=== PATIENT | female | born 2000 | race Caucasian/White ===

== ENCOUNTER 2022-03-03 17:41 | Inpatient (IN) | payer OTHER ==
[~2022-03-03] VITALS: Ht 160 cm; Wt 100.0 kg
[2022-03-07] VITALS (12 sets, daily range): BP systolic 133–159; BP diastolic 70–99; PULSE 95–121; TEMP 98.4
--- NOTE | 2022-03-07 19:15 | NUR ---
PT TO UNIT AMBULATORY WITH SPOUSE FOR SCHEDULED CYTOTEC INDUCTION. PT ORIENTED TO ROOM, CHANGED INTO GOWN. DENIES CTX, LOF, VAGINAL BLEEDING. EFM X2 APPLIED, VS OBTAINED. PLAN OF CARE EXPLAINED, QUESTIONS ENCOURAGED AND ANSWERED, UNDERSTANDING VERBALIZED.
[2022-03-07 20:58] LABS: COLLECTION METHOD CLEAN CATCH
[2022-03-07 21:00] LABS: BASO % 0.3 % (0.0-2.0); EOS # 0.1 K/mm3 (0.0-0.7); EOS % 1.4 % (0.0-4.0); GRAN # 7.1 K/mm3 (1.4-6.5); GRAN % 76.2 % (42.2-75.2); LYMPH # 1.3 K/mm3 (1.2-3.4); LYMPH % 14.2 % (20.0-51.0); MEAN CELL VOLUME 91 fl (80.0-100.0); MEAN CORPUSCULAR HEMOGLOBIN 30 pg (27-31); MEAN CORPUSCULAR HGB CONC 33 g/dl (33.0-37.0); MEAN PLATELET VOLUME 9.6 fl (7.4-10.4); MONO # 0.7 K/mm3 (0.1-0.6); MONO % 7.4 % (1.7-9.3); PLATELET COUNT 304 K/mm3 (130-400); REDCELL DISTRIBUTION WIDTH-CV 12.7 % (11.5-14.5)
[2022-03-07 21:01] LABS: HEMATOCRIT 36.3 % (37.0-47.0)
[2022-03-07 21:07] LABS: PH 6.5 (5.0-8.5); URINE APPEARANCE Clear (CLEAR/HAZY); URINE BLOOD Negative (NEGATIVE); URINE COLOR Yellow (YELLOW); URINE GLUCOSE Negative (NEGATIVE); URINE KETONE 2+ (NEGATIVE); URINE NITRATE Negative (NEGATIVE); URINE PROTEIN(semi-quant) TRACE (NEGATIVE)
[2022-03-07 21:13] LABS: MUCOUS Present (NOT PRESENT); URINE BACTERIA Rare /hpf (NONE SEEN); URINE RBC 0-2 /hpf (0-2); URINE WBC 0-2 /hpf (0-2)
[2022-03-07 21:20] LABS: ALBUMIN 2.6 gm/dL (3.5-5.0); BILIRUBIN,TOTAL 0.2 mg/dL (0.2-1.2); CALCIUM 8.9 mg/dL (8.4-10.2); CREATININE, serum 0.71 mg/dL (0.57-1.11); POTASSIUM 3.6 mmol/L (3.5-4.5); TOTAL PROTEIN 6.2 gm/dL (6.2-8.1)
[2022-03-07] MEDS ORDERED: CELEXA10 MG PO (23:27)
[2022-03-07] MEDS ORDERED: TYLENOL 500MG500 MG PO (23:28)
[2022-03-07] MEDS ORDERED: ATARAX50 MG PO (23:29)
[2022-03-07] MEDS ORDERED: AMOXICILLIN 50500 MG PO (23:30)
[2022-03-08] VITALS (82 sets, daily range): BP systolic 113–165; BP diastolic 58–97; PULSE 79–131; TEMP 98.2–99.2
--- NOTE | 2022-03-08 01:00 | NUR ---
0033- PT OFF MONITORS TO USE BATHROOM. SEE PHYSICIAN NOTIFICATION CONCERNING PLAN OF CARE. 0051- PT SITTING AT SIDE OF BED PRIOR TO EPIDURAL PLACEMENT. DIFFICULTY TRACING FHT'S. 0055- PT SITTING SEMIFOWLERS, THIS NURSE AT BEDSIDE HOLDING US IN PLACE. FHT'S TRACED IN THE 145'S 0058- [place] TORRES CRNA IN ROOM FOR EPIDURAL PLACEMENT. PT REPOSITIONED TO SITTING POSITION AT SIDE OF BED FOR EPIDURAL. 0100- PITOCIN STARTED AT 2MU. 0103- SINGLE SHOT GIVEN BY [place] TORRES CRNA. PT TOLERATED WELL.
--- NOTE | 2022-03-08 05:15 | NUR ---
TACHYSYSTOLE OCCURING SINCE APPROXIMATELY 0445. PITOCIN DECREASED AT 0510 FROM 14MU TO 12MU.
--- NOTE | 2022-03-08 05:30 | NUR ---
DIFFICULTY TRACING CTX PATTERN DUE TO MATERNAL POSITION IN LEFT LATERAL WITH RIGHT LEG IN STIRRUP. THIS NURSE IN ROOM ATTEMPTING TO ADJUST TOCO.
--- NOTE | 2022-03-08 08:15 | NUR ---
0815- AT BEDSIDE TO PLACE IU. PROCEDURE EXPLAINED TO PATIENT. ALSO GIVES VERBAL ORDER TO HALF PITOCIN TO 10 IF CONTRACTIONS ARE TOO CLOSE TOGETHER ONCE PATTERN IS REEVALUATED.
--- NOTE | 2022-03-08 18:35 | NUR ---
PT PLACED IN RIGHT LATERAL HIP RELEASE FOR APPROXIMATELY 10 MINUTES.
--- NOTE | 2022-03-08 20:10 | NUR ---
1946- DR. NOYOLA NOTIFIED OF IMPENDING DELIVERY, ON HIS WAY TO THE HOSPITAL. 1951- DR. NOYOLA IN ROOM FOR DELIVERY. 1999- SPONTANEOUS VAGINAL DELIVERY OF VIABLE BABY BOY. BABY TO MOTHER'S CHEST, DRIED AND STIMULATED. CORD CLAMPED BY DR. NOYOLA AND CUT BY FOB. BABY CARES ASSUMED BY MALINI IBARRA. 2002- SPONTANEOUS DELIVERY OF INTACT PLACENTA. PITOCIN STARTED AT 333MLS/HR PER PROTOCOL. RIGHT LABIAL ABRASION AND PERINEAL ABRASION NOTED BY DR. NOYOLA BUT NO SUTURE NECESSARY. 2009- RECOVERY STARTED.
--- NOTE | 2022-03-08 20:33 | NUR ---
3- SVE OF COMPLETE/+2. 1929- ZHANNA DC'D, 250MLS URINE OUT. IU DC'D. 1932- PT BEGINS PUSHING WITH THIS NURSE.
--- NOTE | 2022-03-08 21:20 | NUR ---
2119 SCHEDULED MOTRIN GIVEN. ASSIST WITH
--- NOTE | 2022-03-08 22:00 | NUR ---
2200 IV TO INT. EPID CATH REMOVED. UP TO BR WITH ASSIST AND VOIDED 500CC. PERICARE DONE. TO 215 PER W/C AND RICARDO WELL
--- NOTE | 2022-03-08 22:15 | NUR ---
5 CALLED OUT AND SAID HAD LARGE GUSH OF BLOOD. HALF PEACH PAD SAT WITH BLOOD ON FLOOR WHEN UP TO BR AND 3-4 CM CLOT PASSED. PAD WEIGHED 180 QBL. RETURNED TO BED AND FUNDAS BOGGY WITH SM AMOUNT FREE FLOW. DR NOYOLA NOTIFIED AND ORDER RECEIVED 2229 METHERGINE 0.2MG IM GIVEN
--- NOTE | 2022-03-08 22:45 | NUR ---
2245 STATES FELT LARGE GUSH OF BLOOD. UP TO BR WITH ASSIST. CLOT PASSED WHILE UP. PERICARE DONE. RETURNED TO BED. FF AT UMBILICUS. PAD AND CHUX WEIGHED 224 QBL. NO VAG BLEEDING NOTED NOW.
--- NOTE | 2022-03-08 23:15 | NUR ---
2315 LARGE VAG BLEEDING NOTED. UP TO BR WITH PEACH PAD SAT AND 5 CM CLOT PASSED. PERICARE DONE AND RETURNED TO BED. FUNDAS SL BOGGY WITH FREE FLOW NOTED. DR NOYOLA NOTIFIED AND ORDERS RECEIVED. 2325 METHERGINE0.2MG IM GIVEN
--- NOTE | 2022-03-08 23:30 | NUR ---
2330 CALLED OUT THAT SHE HAD ANOTHER GUSH OF BLOOD. FF SL BOGGY AND MASSAGED FIRM AFTER CLOT PASSED. UP TO BR FOR PERICARE. [address] NOYOLA NOTIFIED AND ORDERS RECEIVED. 2355 PITOCIN 30 UNITS IN 500CC LR STARTED PER IV PUMP TO TITRATE. FF AND PAD CHANGED. 66 QBL ON PAD. PERCOCET X1 PO GIVEN. 0005 FUNDAS FIRM WITH NO ACTIVE BLEEDING NOTED AT THIS TIME
[2022-03-09] VITALS: BP 144/99; PULSE 90; TEMP 97.8
--- NOTE | 2022-03-09 00:30 | NUR ---
0030 FF AT UMBILICUS WITH SOME FREE FLOW NOTED.
--- NOTE | 2022-03-09 00:50 | NUR ---
0050 UP TO BR WITH URGE FOR BM. PAD CHANGED WITH ONE PEACH PAD 1/2 SAT. 29 QBL. NO EXCESS VAG BLEEDING NOTED WHILE UP. RETURNED TO BED. LIGHTS OUT TO SLEEP. IV CONTS TO INF
[2022-03-09 03:30] VITALS: BP 129/84; PULSE 77; TEMP 97.8
[2022-03-09 07:40] VITALS: BP 124/81; PULSE 83; TEMP 98.8
--- NOTE | 2022-03-09 10:56 | NUR ---
Initial visit; Patient indisposed, [employer] left card offering congratulations for the of their son and information regarding the availability of spiritual care at our hospital.
[2022-03-09 13:00] VITALS: BP 168/74; PULSE 80; TEMP 98.8
[2022-03-09 16:32] VITALS: BP 118/66; PULSE 74; TEMP 98
[2022-03-09 21:00] VITALS: BP 118/71; PULSE 70; TEMP 97.8
[2022-03-10 08:30] VITALS: BP 117/73; PULSE 64; TEMP 97.3
[2022-03-10] MEDS ORDERED: PERCOCET 325 MG1 TA2 PO (08:45)
[2022-03-10] MEDS ORDERED: MOTRIN 800800 MG/TAB PO (08:45)
== END 2022-03-10 16:00 | disposition home or self-care (01) | DRG 807 ==
LOC: OB 03-07 08:40 → LDR 03-07 19:09 → OB 03-07 19:09
PROVIDERS: ADMIT Obstetrics & Gynecology
PROC: 3E033VJ Introduction of Other Hormone into Peripheral Vein, Percutaneous Approach (ICD-10-PCS; principal; 2022-03-08)
PROC: 10E0XZZ Delivery of Products of Conception, External Approach (ICD-10-PCS; 2022-03-08)
DX: O99.344 Other mental disorders complicating childbirth (principal); Z37.0 Single live birth; F32.A Depression, unspecified; F41.9 Anxiety disorder, unspecified; Z3A.39 39 weeks gestation of pregnancy; O99.214 Obesity complicating childbirth; O71.82 Other specified trauma to perineum and vulva; Z23 Encounter for immunization
CPT/HCPCS: J2210; J2590; J7120